=== PATIENT | female | born 1990 | race Caucasian/White ===

== ENCOUNTER 2016-10-02 14:42 | Outpatient (CLI) | payer OTHER ==
[2015-12-23 04:01] VITALS: BP 99/57
--- NOTE | 2016-10-02 18:33 | Diagnostic Imaging Report ---
[facility] [id number] [facility].[address] [address] Report Submission Date: October 02, 2016 3:25:46 PM CDT Patient Study Name: RADHA BLACKMON Date: October 02, 2016 2:55:25 PM CDT Modality Type: CR Gender: F Description: UPPER EXTREMITY : 88 Institution: [facility] Physician: KANDIS SALES Left wrist 3 views Clinical history: Trauma and pain No visible fractures, dislocation or bone destruction . Impression: Normal left wrist Electronically signed on October 02, 2016 3:25:46 PM CDT by: Donato GAMEZ
== END 2016-10-02 14:43 ==
LOC: RAD 14:42
PROVIDERS: ATTEND Physician Assistant
DX: M25.532 Pain in left wrist (principal)
CPT/HCPCS: 73110

== ENCOUNTER 2017-01-04 17:20 | Outpatient (CLI) | payer OTHER ==
[2015-12-23 04:01] VITALS: BP 99/57
== END 2017-01-04 17:21 ==
LOC: LABRHC 17:20
PROVIDERS: ATTEND Physician Assistant
DX: R30.0 Dysuria (principal)
CPT/HCPCS: 87086; 87186

== ENCOUNTER 2017-06-19 15:42 | Outpatient (CLI) | payer OTHER ==
[2015-12-23 04:01] VITALS: BP 99/57
== END 2017-06-19 15:44 ==
LOC: LAB 15:42
PROVIDERS: ATTEND Family Medicine
DX: E03.9 Hypothyroidism, unspecified (principal)
CPT/HCPCS: 36415; 84443

== ENCOUNTER 2017-08-06 13:52 | Outpatient (CLI) | payer OTHER ==
[2015-12-23 04:01] VITALS: BP 99/57
[2017-08-06 15:03] LABS: eGFR (African) > 60; eGFR (Non-African) > 60
== END 2017-08-06 13:53 ==
LOC: LAB 13:52
PROVIDERS: ATTEND Family Medicine
DX: E87.6 Hypokalemia (principal); E03.9 Hypothyroidism, unspecified
CPT/HCPCS: 36415; 80048; 84443

== ENCOUNTER 2019-03-02 09:25 | Day surgery (SDC) | payer OTHER ==
[2015-12-23 04:01] VITALS: BP 99/57
[~2019-03-02 09:25] MED LIST: LACTATED RINGERS 1,000 ML IV.SOLN IV ONE; LIDOCAINE HCL 2% PF 100MG/5ML VIAL IJ ONE; PROPOFOL 200 MG/20 ML VIAL IV ONE
[2019-03-02] MEDS ORDERED: fentaNYL CITRATE/PF 100 MCG/2 ML INJ. ONE (09:43)
--- NOTE | 2019-03-06 12:46 | GI Report ---
DATE OF PROCEDURE: 03/02/2019 REFERRING PHYSICIAN: Dr. Perdomo. PROCEDURE PERFORMED: Endoscopy, esophageal dilatation. SURGEON: Ann Ramirez M.D., ElijahCShireen. INDICATION FOR PROCEDURE: The patient is a 28-year-old woman who has eosinophilic esophagitis. We did dilate her back in December and it helped her swallowing. She has been on the 6 food elimination diet and was on a PPI b.i.d. and an antacid at bedtime. She recently stopped the PPI and started eating all foods back again and started having difficulty swallowing again. Again, the biopsies showed no dysplasia but increased intraepithelial eosinophils were noted. Because of recurrent difficulty swallowing, she is referred to us at this time for evaluation and re-treatment with dilatation. PROCEDURE MEDICATION: Propofol, as per Anesthesia. DESCRIPTION OF PROCEDURE: The Olympus video endoscope was passed through the esophagus under direct visualization. She does have rings in the distal esophagus and grade II esophagitis. Her stomach, cardia, fundus, body and antrum looked normal. The pylorus was open. The duodenal bulb and first part of the duodenum was entered and was normal. A guidewire was placed in the stomach, the endoscope removed followed by passing of an 18 mm which would be #51 and #54 Indian dilators, without difficulty. The endoscope was reintroduced and there was a little friability where the rings were stretched but not active bleeding. The patient tolerated the procedure well. FINDINGS: 1. Eosinophilic esophagitis with rings. 2. Dilated to a #54 Indian. RECOMMENDATIONS: 1. She needs to stay on the 6 food elimination diet a little bit longer. 2. Continue the PPI before breakfast, supper. 3. Avoid cold liquids. 4. Small frequent meals, not eating late at night. 5. If her symptoms still dont improve then either a barium swallow or an esophageal motility study looking for spasm would be the next consideration. ANN RAMIREZ M.D., F.A.C.P. ELDER/nadia Job#: [id number] Cc: Dr. Perdomo. [facility] CENTERTushar
== END 2019-03-02 11:00 | disposition home or self-care (01) ==
LOC: OPSURG 09:25
PROVIDERS: ATTEND Internal Medicine Gastroenterology
DX: K22.2 Esophageal obstruction (principal); K20.0 Eosinophilic esophagitis
CPT/HCPCS: J2001; J2704; J3010; J7120; 43248

== ENCOUNTER 2019-03-04 08:39 | Outpatient (CLI) | payer OTHER ==
[2015-12-23 04:01] VITALS: BP 99/57
[2019-03-04 09:39] LABS: BASOPHILS % 0.2 % (0.0-1.5); NEUTROPHILS # 2.3 # k/uL (1.4-7.7)
== END 2019-03-04 08:44 ==
LOC: LAB 08:39
PROVIDERS: ATTEND Family Medicine
DX: E03.9 Hypothyroidism, unspecified (principal)
CPT/HCPCS: 36415; 84443; 85025